=== PATIENT | female | born 2000 | race Two or more races ===

== ENCOUNTER 2024-03-13 15:47 | Emergency (ER) | payer OTHER ==
[~2024-03-13] VITALS: Ht 182.9 cm; Wt 86.2 kg
[2024-03-13] MEDS ORDERED: CEFTRIAXONE SODIUM 1,000 MG VIAL IM STA (16:50)
[2024-03-13] MEDS ORDERED: FAMOTIDINE/PF 20 MG/2 ML VIAL IV PUSH STA (16:51)
[2024-03-13 17:25] LABS: HEMATOCRIT 40.8 % (36.0-45.00); HEMOGLOBIN 14.2 g/dL (12.0-15.00); MEAN CORPUSCULAR HGB CONC 34.9 g/dl (32.0-36.0); PLATELET COUNT 226 K/uL (150-450); RED BLOOD COUNT 4.58 M/uL (4.00-6.00); RED CELL DISTRIBUTION WIDTH 12.1 % (11.5-14.5)
[2024-03-13] MEDS ORDERED: ONDANSETRON 4 MG TAB.RAPDIS PO ONE (17:45)
[2024-03-13 17:48] LABS: PH,URINE 6.5 (5.0-8.0); URINE APPEARANCE Clear; URINE BACTERIA 1416.1 uL (0.0-1933); URINE BILIRRUBIN Negative (NEGATIVE); URINE BLOOD Negative; URINE COLOR Yellow; URINE EPITHELIAL CELLS 32.4 uL (0.0-38.8); URINE GLUCOSE Negative (NEGATIVE); URINE KETONE Trace (NEGATIVE); URINE LEUKOCYTE Small; URINE NITRATE Negative; URINE PROTEIN Negative (NEGATIVE); URINE RBC 2.5 uL (0.0-20.8); URINE UROBILINOGEN 0.2 E.U./dl; URINE WBC 121.4 uL (0.0-23.2)
[2024-03-13 17:55] LABS: URINE CAST 0.73 uL (0.0-1.40)
[2024-03-13 18:10] LABS: CALCIUM 10.1 mg/dL (8.5-10.1); CREATININE SERUM 0.8 mg/dL (0.55-1.02); GFR 87.39; POTASSIUM 3.53 mEq/L (3.5-5.1)
== END 2024-03-13 18:51 | disposition home or self-care (01) ==
LOC: ER 15:49
PROVIDERS: General Practice
DX: R21 Rash and other nonspecific skin eruption (principal)